=== PATIENT | male | born 1940 | race Caucasian/White ===

== ENCOUNTER 2018-10-13 09:22 | Emergency (ER) | payer MEDICARE, OTHER ==
[~2018-10-13] VITALS: Ht 182.9 cm; Wt 93.9 kg
[2018-10-13 09:27] VITALS: BP 153/75
--- NOTE | 2018-10-13 09:30 | NUR ---
[id number] FROM HOME C/O L KNEE PAIN X 2 DAYS. NON TRAUMATIC. PATIENT A/OX4, BREATHING EVEN AND UNLABORED, NO SOB NOTED, NEEDS ATTENDED. ATTACHED TO THE MONITOR.
[2018-10-13] MEDS ORDERED: KETOROLAC TROMETHAMINE INJ 30 MG/ML VIAL ONE (09:52)
[2018-10-13] MEDS ORDERED: MORPHINE SULFATE INJ 4 MG/ML DISP.SYRIN ONE (09:53)
[2018-10-13] MEDS ORDERED: KETOROLAC TROMETHAMINE INJ 60 MG/2 ML VIAL IM ONE (10:00)
[2018-10-13] MEDS ORDERED: MORPHINE SULFATE INJ 4 MG/ML DISP.SYRIN IM ONE (10:00)
== END 2018-10-13 11:02 | disposition home or self-care (01) ==
LOC: ER 09:26
DX: M10.062 Idiopathic gout, left knee (principal); I10 Essential (primary) hypertension; E11.9 Type 2 diabetes mellitus without complications; Z95.5 Presence of coronary angioplasty implant and graft; Z95.0 Presence of cardiac pacemaker
CPT/HCPCS: 36415; 84550; 96372 ×2; 99283; J1885; J2270